=== PATIENT | male | born 1960 | race African-American/Black ===

== ENCOUNTER 2016-04-30 10:17 | Emergency (ER) | payer MEDICAID ==
[~2016-04-30] VITALS: Ht 198.1 cm; Wt 86.0 kg
[2016-04-30 11:00] VITALS: BP 160/118
== END 2016-04-30 15:42 | disposition left against medical advice (07) ==
LOC: ER 12:04
DX: K62.89 Other specified diseases of anus and rectum (principal); K62.5 Hemorrhage of anus and rectum; I10 Essential (primary) hypertension; F17.200 Nicotine dependence, unspecified, uncomplicated; Z88.6 Allergy status to analgesic agent

== ENCOUNTER 2019-02-26 10:23 | Emergency (ER) | payer MEDICAID ==
[~2019-02-26] VITALS: Ht 185.4 cm; Wt 73.0 kg
[2019-02-26 11:32] VITALS: BP 179/97
== END 2019-02-26 15:24 | disposition left against medical advice (07) ==
LOC: ER 10:23
DX: Z53.21 Procedure and treatment not carried out due to patient leaving prior to being seen by health care provider (principal)